=== PATIENT | female | born 1985 | race Caucasian/White ===

== ENCOUNTER → 2018-01-25 | Outpatient (CLI) | payer OTHER ==
--- NOTE | 2018-01-25 11:30 | 2DMMODE ---
[place] [address] 2 D/M-MODE ECHOCARDIOGRAM Name: ANSHU HEWITTONDRA Room: [facility]#: [id number] Admission: 01/25/18 Attend Phys: Julian Haynes Discharge: Date of : 83 Date of Service: 01/25/18 1130 Report #: [id number] THIS REPORT FOR: //name// APPROVED REPORT Study performed: 01/25/2018 08:54:37 EXAM: Comprehensive 2D, Doppler, and color-flow Echocardiogram Patient Location: Out-Patient Status: routine BSA: 2.26 HR: 66 bpm BP: 132/82 mmHg Other Information Study Quality: Good Indications Dyspnea Chest Pain 2D Dimensions LVEF(%): 74.08 (>50%) IVSd: 11.05 (7-11mm) LVOT Diam: 20.40 (18-24mm) LVDd: 45.14 mm PWd: 10.42 (7-11mm) Ascending Ao: 31.54 (22-36mm) LVDs: 25.80 (25-40mm) Aortic Root: 26.42 mm Schaeffer's LVEF: 74.08 % Volumes Left Atrial Volume (Systole) LA ESV Index: 12.70 mL/m2 Aortic Valve AoV Peak Luis Eduardo.: 1.46 m/s AO Peak Gr.: 8.53 mmHg LVOT Max P.29 mmHg AO Mean Gr.: 4.68 mmHg LVOT Mean P.45 mmHg LVOT Max V: 1.15 m/s AO V2 VTI: 30.31 cm LVOT Mean V: 0.72 m/s WESLEY (VTI): 2.59 cm2 LVOT V1 VTI: 24.02 cm Mitral Valve E/A Ratio: 1.19 [place] [address] 2 D/M-MODE ECHOCARDIOGRAM Name: DAKSHA HEWITT Room: [facility]#: [id number] Admission: 01/25/18 Attend Phys: Julian Haynes Discharge: Date of : 83 Date of Service: 01/25/18 1130 Report #: [id number] MV Decel. Time: 219.63 ms MV E Max Luis Eduardo.: 0.89 m/s MV PHT: 63.69 ms MVA (PHT): 3.45 cm2 TDI E/Lateral E': 6.36 E/Medial E': 8.90 Medial E' Luis Eduardo.: 0.10 m/s Lateral E' Luis Eduardo.: 0.14 m/s Pulmonary Valve PV Peak Luis Eduardo.: 1.39 m/s PV Peak Gr.: 7.77 mmHg Left Ventricle The left ventricle is normal size. There is normal LV segmental wall motion. There is normal left ventricular wall thickness. Left ventricular systolic function is normal. The left ventricular ejection fraction is within the normal range. LVEF is 55-60%. The left ventricular diastolic function is normal. Right Ventricle The right ventricle is normal size. The right ventricular systolic function is normal. Atria The left atrium size is normal. The right atrium size is normal. Aortic Valve The aortic valve is normal in structure. No aortic regurgitation is present. There is no aortic valvular stenosis. Mitral Valve The mitral valve is normal in structure. There is no mitral valve regurgitation noted. No evidence of mitral valve stenosis. Tricuspid Valve The tricuspid valve is normal in structure. There is no tricuspid valve regurgitation noted. Pulmonic Valve The pulmonary valve is normal in structure. There is no pulmonic valvular regurgitation. Great Vessels The aortic root is normal in size. IVC is [place] [address] 2 D/M-MODE ECHOCARDIOGRAM Name: DAKSHA HEWITT Room: [facility]#: [id number] Admission: 01/25/18 Attend Phys: Julian Haynes Discharge: Date of : 83 Date of Service: 01/25/18 1130 Report #: [id number] collapses with >50% inspiration Pericardium There is no pericardial effusion. <Conclusion> LVEF is 55-60%. There is normal LV segmental wall motion. There is no aortic valvular stenosis. No aortic regurgitation is present. No evidence of mitral valve stenosis. There is no mitral valve regurgitation noted. The left ventricular diastolic function is normal. <ELECTRONICALLY SIGNED> By: Ryan Hays MD, FACC 01/25/18 1130 1130 1130 Ryan Hays MD, FACC /INF
== END ==
LOC: M.CT 01-19 09:08
DX: R07.9 Chest pain, unspecified (principal); R06.02 Shortness of breath; R53.83 Other fatigue

== ENCOUNTER 2021-03-16 19:10 | Emergency (ER) | payer OTHER ==
[~2021-03-16] VITALS: Ht 170.2 cm; Wt 85.7 kg
[2021-03-16] MEDS ORDERED: XANAX 0.5 MG0.5 M1 PO (19:24)
[2021-03-16] MEDS ORDERED: LITHIUM CARBON300 M3 PO (19:24)
[2021-03-16] MEDS ORDERED: SEROQUEL 100 M100 M1 PO (19:25)
[2021-03-16] MEDS ORDERED: SEROQUEL300 MG PO (19:25)
[2021-03-16] MEDS ORDERED: DEPAKOTE ER500 M1 PO (19:25)
[2021-03-16] MEDS ORDERED: GABAPENTIN100 MG PO (19:25)
[2021-03-16] MEDS ORDERED: TRELEGY ELLIPT1 EACH INH (19:26)
[2021-03-16] MEDS ORDERED: SINGULAIR 10 MG10 M1 PO (19:26)
[2021-03-16] MEDS ORDERED: ZOFRAN ODT4 MG PO (19:26)
[2021-03-16] MEDS ORDERED: HYDROXYZINE HCL25 M2 PO (19:26)
[2021-03-16] MEDS ORDERED: CLONAZEPAM 0.50.5 M1 PO (19:27)
[2021-03-16 19:50] LABS: URINE BILIRUBIN NEGATIVE (Negative); URINE BLOOD NEGATIVE (Negative); URINE CLARITY CLEAR; URINE COLOR YELLOW; URINE GLUCOSE-RANDOM NEGATIVE (Negative); URINE KETONES NEGATIVE (Negative); URINE LEUKOCYTES-REFLEX NEGATIVE (Negative); URINE NITRITE-REFLEX NEGATIVE (Negative); URINE PROTEIN NEGATIVE (Negative); URINE SPECIFIC GRAVITY 1.015 (1.005-1.030); URINE UROBILINOGEN 0.2 E.U./dl (0.2-1.0)
[2021-03-16 19:58] LABS: ABSOLUTE BASOPHILS 0.1 thou/uL (0.0-0.2); ABSOLUTE EOSINOPHILS 0.2 thou/uL (0.0-0.7); ABSOLUTE LYMPHOCYTES 3.2 thou/uL (0.8-5.3); ABSOLUTE MONOCYTES 0.6 thou/uL (0.0-1.2); ABSOLUTE NEUTROPHILS 11.5 thou/uL (1.6-8.1); BASOPHILS 0.6 %; EOSINOPHILS 1.2 %; HEMATOCRIT 39.6 % (37.0-47.0); HEMOGLOBIN 12.9 gm/dL (12.0-15.0); LYMPHOCYTES 20.3 %; MCH 27.5 pg (26.0-34.0); MCHC 32.6 g/dL (28.0-37.0); MCV 84.3 fL (80.0-100.0); MONOCYTES 4.1 %; MPV 7.8 fl. (7.2-11.1); NUCLEATED RBCS 0 /100WBC; PLATELET COUNT* 292 thou/uL (150-400); POLYS 73.8 %; RDW-CV 17.2 % (10.5-14.5); WBC 15.6 thou/uL (4.0-11.0)
[2021-03-16 20:06] LABS: CALCIUM 8.3 mg/dL (8.5-10.1); CREATININE 0.7 mg/dL (0.6-1.3); POTASSIUM 3.7 mmol/L (3.5-5.1)
[2021-03-16 20:11] LABS: ALBUMIN 3.8 g/dL (3.4-5.0); TOTAL BILIRUBIN 0.2 mg/dL (<0.1-1.0)
[2021-03-16] MEDS ORDERED: AMOXIL 875 MG875 M1 PO (20:44)
[2021-03-16] MEDS ORDERED: FLAGYL500 M1 PO (20:44)
[2021-03-16] MEDS ORDERED: NYSTATIN100000 UNI PO (20:44)
[2021-03-16] MEDS ORDERED: DIFLUCAN150 MG PO (20:44)
[2021-03-16 20:55] VITALS: BP 131/70
== END 2021-03-16 20:55 | disposition home or self-care (01) ==
LOC: M.ERS 19:10
PROVIDERS: Physician Assistant
DX: N76.0 Acute vaginitis (principal); B37.9 Candidiasis, unspecified; Z20.822 Contact with and (suspected) exposure to COVID-19; J06.9 Acute upper respiratory infection, unspecified; F17.210 Nicotine dependence, cigarettes, uncomplicated; K21.9 Gastro-esophageal reflux disease without esophagitis; Z79.899 Other long term (current) drug therapy; Z98.84 Bariatric surgery status

== ENCOUNTER 2021-04-06 20:43 | Emergency (ER) | payer OTHER ==
[~2021-04-06] VITALS: Ht 170.2 cm; Wt 85.3 kg
[~2021-04-06 20:43] MED LIST: AMOXIL 875 MG875 M1 PO; CLONAZEPAM 0.50.5 M1 PO; DEPAKOTE ER500 M1 PO; DIFLUCAN150 MG PO; FLAGYL500 M1 PO; GABAPENTIN100 MG PO; HYDROXYZINE HCL25 M2 PO; LITHIUM CARBON300 M3 PO; NYSTATIN100000 UNI PO; SEROQUEL 100 M100 M1 PO; SEROQUEL300 MG PO; SINGULAIR 10 MG10 M1 PO; TRELEGY ELLIPT1 EACH INH; XANAX 0.5 MG0.5 M1 PO; ZOFRAN ODT4 MG PO
[2021-04-06 22:46] LABS: URINE BILIRUBIN NEGATIVE (Negative); URINE BLOOD NEGATIVE (Negative); URINE CLARITY CLEAR; URINE COLOR YELLOW; URINE GLUCOSE-RANDOM NEGATIVE (Negative); URINE KETONES NEGATIVE (Negative); URINE LEUKOCYTES-REFLEX NEGATIVE (Negative); URINE NITRITE-REFLEX NEGATIVE (Negative); URINE PROTEIN NEGATIVE (Negative); URINE SPECIFIC GRAVITY 1.025 (1.005-1.030); URINE UROBILINOGEN 0.2 E.U./dl (0.2-1.0)
[2021-04-06] MEDS ORDERED: TORADOL 10 MG T10 MG PO (22:50)
[2021-04-06] MEDS ORDERED: ACETAMINOPHEN-1 EAC2 PO (22:50)
[2021-04-06 23:25] VITALS: BP 121/72
== END 2021-04-06 23:25 | disposition home or self-care (01) ==
LOC: M.ERS 20:43
PROVIDERS: Personal Emergency Response Attendant
DX: S93.491A Sprain of other ligament of right ankle, initial encounter (principal); S46.811A Strain of other muscles, fascia and tendons at shoulder and upper arm level, right arm, initial encounter; F07.81 Postconcussional syndrome; G44.309 Post-traumatic headache, unspecified, not intractable; K21.9 Gastro-esophageal reflux disease without esophagitis; F41.9 Anxiety disorder, unspecified; F17.210 Nicotine dependence, cigarettes, uncomplicated; Z98.890 Other specified postprocedural states; Z90.49 Acquired absence of other specified parts of digestive tract; Z79.891 Long term (current) use of opiate analgesic; Z79.899 Other long term (current) drug therapy; Z88.8 Allergy status to other drugs, medicaments and biological substances; V43.52XA Car driver injured in collision with other type car in traffic accident, initial encounter; Y93.89 Activity, other specified; Y92.89 Other specified places as the place of occurrence of the external cause; Y99.8 Other external cause status